=== PATIENT | female | born 1955 | race Caucasian/White ===

== ENCOUNTER 2016-03-29 10:31 | Emergency (ER) | payer MEDICAID ==
[2016-03-29 10:43] VITALS: BP 132/64
--- OUTSIDE RECORDS SUMMARY | 2016-03-29 10:58 | XMS REPORT | Continuity of Care Document ---
:1955 Author Organization [facility] ([facility]) Address [address] [place] [address] Phone [phone] Care Team Providers Name Role Phone Erinnannette Carlita Primary Care Provider [phone] Source Comments This disclosure is being made pursuant to the Care Everywhere program, applicable federal and state laws, and may not contain all informaitonavailable regarding this patient.[facility] ([facility]) Active Allergies and Adverse Reactions Allergen Noted Date Severity Reactions Comments Aspirin 09/05/2014 Unknown Erythromycin Upper Airway Edema,Urticaria (Hives) Hydroxyzine Pamoate 09/05/2014 Nausea & Vomiting Ketorolac 09/05/2014 Nausea & Vomiting Levofloxacin 09/04/2014 Urticaria (Hives) Sulfa (Sulfonamide 09/25/2009 Urticaria (Hives) Antibiotics) Topiramate OTHER seizures Current Medications Prescription Sig. Disp. Refills Start Date End Date Status AMLODIPINE Take 10 mg by mouth Active BESYLATE/BENAZEPRIL daily (LOTREL PO) atorvastatin 80 mg Take 80 mg by mouth Active tablet every evening albuterol 90 Use 2 Puffs by Active mcg/Actuation inhaler inhalation every 6 hours as needed budesonide-formoterol Use 2 Puffs by Active (SYMBICORT) 160-4.5 inhalation 2 times mcg/Actuation inhaler daily cyclobenzaprine 10 mg Take 10 mg by mouth 3 Active tablet times daily as needed famotidine 20 mg tablet Take 20 mg by mouth 2 Active times daily insulin glargine Inject subcutaneously Active (LanTUS SOLOSTAR) 100 at bedtime unit/mL (3 mL) injection pen insulin lispro Inject subcutaneously Active (HumaLOG) 100 unit/mL 3 times daily before injection vial meals levothyroxine 50 mcg Take 50 mcg by mouth Active tablet every morning before breakfast omeprazole 20 mg Take 20 mg by mouth Active enteric coated capsule daily Prasterone (DHEA) 50 mg Active cap OTHER Active multivitamin tablet Take 1 tablet by Active mouth daily. cholecalciferol Take 1,000 Units by Active (VITAMIN D3) 1,000 unit mouth daily. tablet albuterol 2.5 mg/3 mL 05/11/2015 Active inhalation solution benazepril 40 mg tablet 07/12/2015 Active methadone 5 mg tablet 0 06/19/2015 Active oxyCODONE 5 mg 06/26/2015 Active immediate release tablet EASY TOUCH 31 X 516 " Use as directed. 11 06/04/2015 Active ndle BD INSULIN SYRINGE Use as directed. 0 06/04/2015 Active ULTRA-FINE 0.5 mL 31 g x 06/24" ketorolac 0.4 % Instill 1 Drop onto 10 mL 6 07/16/2015 Active ophthalmic solution the left eye 4 times daily. 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 Pseudophakia 05/21/2015 AMD (age related macular degeneration) 04/18/2015 Other dyspnea and respiratory abnormality 09/05/2014 Tobacco use disorder 09/05/2014 Spinal stenosis, unspecified region other than cervical 06/23/2003 Acquired spondylolisthesis 06/23/2003 Borderline personality disorder 02/12/2001 Subjective tinnitus 02/12/2001 Dizziness and giddiness 02/12/2001 Headache(784.0) 02/12/2001 COPD (chronic obstructive pulmonary disease) Social History Tobacco Use Types Packs/Day Years Used Date Current Every Day Smoker 2 30 Smokeless Tobacco: Never Used Tobacco Cessation:Ready to Quit: No; Counseling Given: Yes Comments: Alcohol Use Drinks/Week oz/Week Comments No Last Filed Vital Signs Vital Sign Reading Time Taken Blood Pressure 176/84 07/16/2015 1:00 PM CDT Pulse 73 07/16/2015 1:00 PM CDT Temperature 36.4 C (97.5 F) 07/16/2015 12:42 PM CDT Respiratory Rate 16 07/16/2015 1:00 PM CDT Height 1.626 m (5' 4.02") 04/18/2015 3:13 PM [employer] Weight 80.6 kg (177 lb 11.1 oz) 07/16/2015 11:07 AM CDT Body Mass Index 30.49 07/16/2015 11:07 AM CDT Oxygen Saturation 94% 07/16/2015 1:00 PM CDT Plan of Care Date Type Specialty Providers Description 08/21/2016 Appointment Ophthalmology - Lucille Alvarado MD Chief Comp: Patient Specialty [address] [place] [address] Visit [phone] (Fax) Health Maintenance Due Date Last Done Comments Hepatitis B Vaccine (1 of 3 - Primary 1955 Series) Tdap Vaccine 1965 Lipid Disorder Screening 1972 Td Vaccine 1972 Pneumococcal Vaccine (1 of 1 - PPSV23) 1973 Mammogram 1994 Colonoscopy 06/28/2004 Cervical Cancer Screening 11/16/2004 11/16/2001, 03/01/1999 Zoster Vaccine 2014 Influenza Vaccine: Seasonal (#1) 09/10/2015 HCV Screening Completed 03/15/1998 Results from Last 3 Months Not on file
[2016-03-29] MEDS ORDERED: KETOROLAC TROMETHAMINE 30 MG/ML VIAL IV ONE (11:09)
[2016-03-29] MEDS ORDERED: NORMAL SALINE 1,000 ML IV ONE (11:09)
[2016-03-29] MEDS ORDERED: ONDANSETRON HCL/PF 2 MG/ML VIAL IV ONE (11:09)
[2016-03-29 11:25] LABS: Hematocrit 45.8 % (37.0-47.0); Hemoglobin 15.1 gm/dL (12.5-16.0); Mean Cell Volume 88.6 fl (78-100); Mean Corpuscular Hemoglobin 29.2 pg (27-31); Mean Platelet Volume 8.6 fl (6.0-9.5); Neutrophil # 7.5 K/mm3 (1.3-6.0); Neutrophil % 65.7 % (42-75.0); Platelet Count 351 K/mm3 (150-450); Red Blood Count 5.17 M/mm3 (4.2-5.4); Red Cell Distribution Width 12.8 % (11.5-14.0); White Blood Count 11.4 K/mm3 (4.0-10.5)
[2016-03-29] MEDS ORDERED: KETOROLAC TROMETHAMINE 30 MG/ML VIAL ONE (11:28)
[2016-03-29] MEDS ORDERED: ONDANSETRON HCL/PF 2 MG/ML VIAL ONE (11:28)
[2016-03-29 11:29] LABS: Urine Appearance Slightly Cloudy; Urine Bilirubin Negative (NEGATIVE); Urine Color Yellow; Urine Ketone 15 mg/dL (NEGATIVE)
[2016-03-29 11:30] LABS: Urine Blood Negative /ul (NEGATIVE); Urine Nitrite Negative (NEGATIVE); Urine Protein 30 mg/dL (NEGATIVE); Urine Urobilinogen Normal (NORMAL); Urine WBC 0-5 /hpf (0-5); Urine pH 5.5 pH (5.0-7.0)
[2016-03-29 11:31] LABS: Urine Bacteria 1+; Urine RBC None Seen /hpf (0-5)
[2016-03-29 11:32] LABS: Anion Gap 12.4 mmol/L (6.8-13.8); Calcium * 9.7 mg/dL (7.9-10.9); Carbon Dioxide 29.1 mmol/L (24-32.6); Estimated Creat Clear 65.4; Potassium 4.5 mmol/L (3.4-4.6)
--- NOTE | 2016-03-29 11:55 | ERNOTE ---
Back Pain ER HPI Date of Service: 03/29/16 Presenting Symptoms: other - pain left flank area radiating into left groin area x 3 weeks Time Seen by Provider: 03/29/16 10:48 Source: patient Exam Limitations: no limitations Immunizations: IMMUNIZATION HX Immunizations Up to Date Yes History of Influenza Vaccine No Hx Pneumococcal Vaccination No Allergies/Adverse Reactions: Allergies erythromycin base [Erythromycin Base] Allergy (Severe, Verified 03/29/16 10:44) SWELLING/HIVES sulfadiazine Allergy (Mild, Verified 03/29/16 10:44) Hives levofloxacin [From Levaquin] Allergy (Unknown, Verified 03/29/16 10:44) progesterone Allergy (Unknown, Verified 03/29/16 10:44) butorphanol tartrate [From Stadol] Adverse Reaction (Mild, Verified 03/29/16 10: 44) Nausea hydroxyzine HCl [From Vistaril IM] Adverse Reaction (Mild, Verified 03/29/16 10: 44) rash ibuprofen Adverse Reaction (Mild, Verified 03/29/16 10:44) pain, cramping ketorolac tromethamine [From Toradol] Adverse Reaction (Mild, Verified 03/29/16 10:44) Vomiting topiramate [From Topamax] Adverse Reaction (Mild, Verified 03/29/16 10:44) Itching Sulfa Adverse Reaction (Severe, Uncoded 03/29/16 10:44) Shortness of Breath Home Medications: HOME MEDICATIONS oxyCODONE HCL [Oxycodone] 10 - 20 mg PO TID PRN 05/06/12 [Last Taken 08/02/13] Methadone HCl [Methadone] 5 mg PO BID 06/12/12 [Last Taken 08/02/13] Insulin Glargine,Hum.rec.anlog [Lantus] 30 units SC HS 08/19/14 [Last Taken Unknown] Albuterol Sulfate [Proventil Hfa] 2 puff IH Q4H PRN 09/05/15 [Last Taken Unknown ] Cyanocobalamin [Vitamin B-12] 1,000 mcg PO DAILY 09/05/15 [Last Taken Unknown] Insulin Lispro [Humalog] 5 units SC ACHS 09/05/15 [Last Taken Unknown] Albuterol Sulfate 5 mg IH Q4H PRN 10/17/15 [Last Taken Unknown] Blood Sugar Diagnostic, Drum [Accu-Chek Compact] 1 each ACHS 10/17/15 [Last Taken Unknown] Cholecalciferol (Vitamin D3) [Vitamin D3] 50,000 unit PO Q7D 10/17/15 [Last Taken Unknown] Folic Acid 0.8 mg PO DAILY 10/17/15 [Last Taken Unknown] Insulin Aspart [Novolog Flexpen] 0 unit SQ AC 10/17/15 [Last Taken Unknown] Lactobacillus Acidophilus/Pect [Acidophilus-Pectin Capsule] 1 each PO DAILY 08/24 [Last Taken Unknown] Levothyroxine Sodium [Synthroid] 50 mcg PO DAILY 10/17/15 [Last Taken Unknown] Multivit-Min/FA/Lycopene/Lut [Sentry Senior Multivitamin Tab] 1 each PO DAILY [Last Taken Unknown] Omeprazole [Prilosec] 20 mg PO DAILY 10/17/15 [Last Taken Unknown] Promethazine HCl [Phenergan] 25 - 50 mg PO QID PRN 10/17/15 [Last Taken Unknown] Promethazine HCl [Phenergan] 50 mg RC PRN PRN 10/17/15 [Last Taken Unknown] clonazePAM [Klonopin] 0.5 mg PO TID PRN 10/17/15 [Last Taken Unknown] Cyclobenzaprine HCl [Flexeril] 10/18/15 [Last Taken Unknown] - Pain Score Pain Score #1 Pain Score: 9 Narrative: 60 year old female who presents to ED with c/o "I have been sick x 3 weeks". Patient states started with back pain (left flank area) accompanied with burning with urination, N/V. States 1 week ago saw MARTHA Zazueta and was diagnosed with bladder infection and given unknown antibiotic. Patient states pain in left flank area has progressively getting worse, continues to have N/V and also has fever, chills and body aches. Patient states it no longer lara when she urinates but now has urinary frequency. Timing: Reports: constant, getting worse Quality/Severity: Reports: severe, aching, sharpness, stabbing Location of pain: Reports: other - left mid flank area radiating around into left groin Activities at Onset: Reports: none Recent Injury?: Reports: no Possible Precipitating Factor: Reports: none. Denies: lifting, fall/near fall, trauma Modifying Factors - (Improves): Reports: nothing Modifying Factors - (Worsens): Reports: supine position, movement to right, movement to left, cough/deep breaths Associated Symptoms: Reports: fever/chills, sweating - intermittent, nausea/ vomiting, problems urinating. Denies: constipation/incontinence, difficulty walking, lightheadedness, numbess/weakness in legs Prior Treament: Reports: recently seen, other - just finished antibiotics, unknown name Review of Systems - Review of Systems Constitutional: Present: fever, chills, diaphoresis. Absent: weakness, fatigue , weight loss EYE: Present: no symptoms reported ENT: Absent: ear pain, ear discharge, nose pain, nose congestion, nasal drainage , sore throat Respiratory: Absent: shortness of breath, cough, orthopnea, wheezing, stridor Cardiology: Present: no symptoms reported. Absent: chest pain, palpitations, syncope Gastrointestinal/Abdominal: Present: nausea, vomiting, eating less, drinking less. Absent: diarrhea, constipation, abdominal pain Genitourinary: Present: frequency, dysuria - recent history of dysuria. Absent : hematuria, discharge Musculoskeletal: Present: back pain. Absent: muscle pain, muscle stiffness, neck pain Skin: Absent: rash, dryness Neurological: Present: no symptoms reported Endocrine: Present: no symptoms reported Hematologic/Lymphatic: Present: no symptoms reported Psych: Present: no symptoms reported - Patient's Past Medical History Patient History - Medical: No pertinent hx, Chronic Pain, Diabetes Type 2, Headache, Migraines Patient History - Cardiac/Respiratory: No pertinent hx Patient History - Cancer: No Hx of Cancer Patient History - Surgical Procedures: Cataracts, Cholecystectomy, Tubal Ligation, Other Patient History - Other: None - Social History Living Situations: home Abuse History: No History of abuse Psych History: Hx of Depression, Current tx/ever been on anti-depressants or anti-anxiety meds Smoking Status: Current every day smoker Have you smoked in the past 12 months: Yes Do you dip or chew tobacco: No Alcohol Use: none Drug Use: none - Immunizations Immunizations Up to Date: Yes Hx Pneumococcal Vaccination: No History of Influenza Vaccine: No Physical Exam - Physical Exam General Appearance: Present: wd/wn, alert, no apparent distress. Absent: lethargic Eye Exam: Normal inspection: bilateral, PERRL: bilateral Ears, Nose, Throat: Present: normal ENT inspection, hearing grossly normal, normal pharynx. Absent: nasal congestion, sinus pain/drainage, dry mucous membranes Neck: Present: normal inspection, nontender Respiratory: Present: no respiratory distress, normal breath sounds, no accessory muscle use, chest nontender, lungs clear. Absent: chest tenderness, respiratory distress Cardiovascular/Chest: Present: regular rate, rhythm, no murmur, normal peripheral pulses. Absent: tachycardia, bradycardia, irregularly irregular, extra beats Peripheral Pulses: N=norm/S=strong/W=weak/B=bound/A=absent: Radial (R): Normal, Radial (L): Normal Gastrointestinal/Abdominal: Present: normal bowel sounds, nontender, nondistended, soft, tenderness - all quadrants, guarding - all quadrants. Absent: abnormal bowel sounds, distended Rectal Exam: Present: deferred Back Exam: Present: normal inspection, normal range of motion, CVA tenderness (L ). Absent: CVA tenderness (R), vertebral tenderness, decreased range of motion Extremity Exam: Present: normal inspection, non-tender, no edema, normal range of motion. Absent: decreased range of motion, pedal edema, calf tenderness Neurological Exam: Present: alert, oriented, normal mood/affect, no motor/ sensory deficits. Absent: motor weakness Skin Exam: Present: normal color, warm/dry. Absent: diaphoresis, cyanosis, jaundice Lymphatic Exam: Present: no adenopathy Pelvic Exam: Present: deferred ED Progress - Results and Orders Patient's Lab Results:: I have reviewed the patient's lab results. - Vital Signs Patient's Vital Signs:: I have reviewed the patient's vital signs. Vital Signs: Vital Signs 03/29/16 10:40 Temperature 36.2 C L Pulse Rate 87 Respiratory 14 Rate Blood Pressure 132/64 O2 Sat by Pulse 96 Oximetry - CT/Ultrasound CT/Ultrasound Narrative: CT abdomen and pelvis for stone protocol shows no definable renal calculi within the kidneys or along ureters. Marked stenosis L4 and L5 - Progress/Reassessment Chief Complaint: Back Pain Progress:: Unchanged Progress Note-Subjective: 03/29/16 12:57 resting quietly in room. States pain is unchanged. Offered Toradol but patient refused Departure Clinical Impression: Chronic back pain Qualifiers: Back pain location: low back pain Back pain laterality: left Sciatica presence : without sciatica Qualified Code(s): M54.5 - Low back pain; G89.29 - Other chronic pain - Departure Disposition: Home self-care Condition: Good Instructions: Chronic Pain, Chronic Back Pain Additional Instructions: Follow up with primary care physician. Return if loss of bowel or bladder occurs
== END 2016-03-29 13:20 | disposition home or self-care (01) ==
LOC: ER 10:31
DX: M54.5 Low back pain (principal); G89.29 Other chronic pain; F17.210 Nicotine dependence, cigarettes, uncomplicated

== ENCOUNTER 2016-10-31 12:47 | Emergency (ER) | payer MEDICAID ==
--- NOTE | 2016-10-31 14:02 | ERNOTE ---
Abdominal HPI - Narrative Date of Service: 10/31/16 - General Chief Complaint: Abdominal Pain Time Seen by Provider: 10/31/16 13:53 Source: patient Exam Limitations: no limitations - Immun/Allergies/Home Medications Immunizatons: IMMUNIZATION HX Immunizations Up to Date Yes History of Influenza Vaccine No Hx Pneumococcal Vaccination Yes Allergies/Adverse Reactions: Allergies erythromycin base [Erythromycin Base] Allergy (Severe, Verified 03/29/16 10:44) SWELLING/HIVES sulfadiazine Allergy (Mild, Verified 03/29/16 10:44) Hives levofloxacin [From Levaquin] Allergy (Unknown, Verified 03/29/16 10:44) progesterone Allergy (Unknown, Verified 03/29/16 10:44) butorphanol tartrate [From Stadol] Adverse Reaction (Mild, Verified 03/29/16 10: 44) Nausea hydroxyzine HCl [From Vistaril IM] Adverse Reaction (Mild, Verified 03/29/16 10: 44) rash ibuprofen Adverse Reaction (Mild, Verified 03/29/16 10:44) pain, cramping ketorolac tromethamine [From Toradol] Adverse Reaction (Mild, Verified 03/29/16 10:44) Vomiting topiramate [From Topamax] Adverse Reaction (Mild, Verified 03/29/16 10:44) Itching Sulfa Adverse Reaction (Severe, Uncoded 03/29/16 10:44) Shortness of Breath Home Medications: HOME MEDICATIONS Methadone HCl [Methadone] 5 mg PO BID 06/12/12 [Last Taken 08/02/13] Insulin Glargine,Hum.rec.anlog [Lantus] 30 units [facility] 08/19/14 [Last Taken Unknown] Albuterol Sulfate [Proventil Hfa] 2 puff IH Q4H PRN 09/05/15 [Last Taken Unknown ] Cyanocobalamin [Vitamin B-12] 1,000 mcg PO DAILY 09/05/15 [Last Taken Unknown] Insulin Lispro [Humalog] See Protocol [facility] 09/05/15 [Last Taken Unknown] Blood Sugar Diagnostic, Drum [Accu-Chek Compact] 1 each [facility] 10/17/15 [Last Taken Unknown] Cholecalciferol (Vitamin D3) [Vitamin D3] 50,000 unit PO Q7D 10/17/15 [Last Taken Unknown] Multivit-Min/FA/Lycopen/Lutein [Sent Senior Multivitamin Tab] 1 each PO DAILY 10/17/15 [Last Taken Unknown] Promethazine HCl [Phenergan] 25 - 50 mg PO QID PRN 10/17/15 [Last Taken Unknown] clonazePAM [Klonopin] 0.5 mg PO TID PRN 10/17/15 [Last Taken Unknown] Cyclobenzaprine HCl [Flexeril] 10 mg PO TID 10/18/15 [Last Taken Unknown] Albuterol Sulfate [Proventil Hfa] 6.7 gm IH PRN PRN 10/31/16 [Last Taken Unknown ] Amlodipine Besylate/Benazepril [Lotrel 10-20 mg Capsule] 1 each PO DAILY [Last Taken Unknown] Atorvastatin Calcium [Lipitor] 80 mg PO DAILY 10/31/16 [Last Taken Unknown] Benazepril HCl 40 mg PO DAILY 10/31/16 [Last Taken Unknown] Budesonide/Formoterol Fumarate [Symbicort 160-4.5 Mcg Inhaler] 2 puff IH BID [Last Taken Unknown] Famotidine 20 mg PO DAILY 10/31/16 [Last Taken Unknown] Gabapentin 300 mg PO TID 10/31/16 [Last Taken Unknown] Prasterone (Dhea) [Dhea 25] 25 mg PO DAILY 10/31/16 [Last Taken Unknown] oxyCODONE HCL [Oxycodone] 5 mg PO Q6H PRN 10/31/16 [Last Taken Unknown] - Pain Score Pain Score #1 Pain Score: 9 Abdominal Pain Onset Location: RUQ, RLQ - History of Present Illness Narrative: 61yo, F, presents to ER with R. sided abd pain x5 days. Pain progressively worse over the last few days. Notes pain is constant with bouts of increased pain. Denies any n, v, d. She is a DM II, notes her PCP has been gradually increasing her Lantus level. This am bg was 142, but has had episodes 200s over the last few days. Timing: constant - with intermittent increased pain Quality: stabbing Modifying Factors - (Improves): Present: other - nothing Modifying Factors - (Worsens): Present: other - nothing Associated Symptoms: Present: other - "gassy". Absent: diarrhea-gross blood, diarrhea-mucous, fever/chills, nausea, vomiting, loss of appetite, shortness of breath, swelling/mass in abdomen Review of Systems - Review of Systems Constitutional: Absent: fever, chills, diaphoresis Respiratory: Absent: shortness of breath, cough, wheezing Cardiology: Absent: chest pain, palpitations Gastrointestinal/Abdominal: Present: other - last BM this am "soft", no diarrhea or constipation. Absent: nausea, vomiting, diarrhea, constipation Genitourinary: Absent: frequency, pain, dysuria, hematuria, decreased urinary output Skin: Absent: rash - Patient's Past Medical History Patient History - Medical: No pertinent hx, Chronic Pain, Diabetes Type 2, Headache, Migraines Patient History - Cardiac/Respiratory: No pertinent hx Patient History - Cancer: No Hx of Cancer Patient History - Surgical Procedures: Cataracts, Cholecystectomy, Tubal Ligation, Other Patient History - Other: None - Social History Living Situations: home Abuse History: No History of abuse Psych History: Hx of Anxiety, Hx of Depression, Current tx/ever been on anti- depressants or anti-anxiety meds Smoking Status: Current every day smoker Have you smoked in the past 12 months: Yes Do you dip or chew tobacco: No Alcohol Use: none Drug Use: none - Immunizations Immunizations Up to Date: Yes Hx Pneumococcal Vaccination: Yes History of Influenza Vaccine: No Physical Exam - Physical Exam General Appearance: Present: wd/wn, alert, other - appears uncomfortable Head Exam: Present: normal inspection Respiratory: Present: no respiratory distress, no accessory muscle use, wheezing - mild intemittent . Absent: rales, rhonchi Cardiovascular/Chest: Present: regular rate, rhythm, no murmur Gastrointestinal/Abdominal: Present: normal bowel sounds, nondistended, soft, tenderness - RLQ, RUQ. Absent: mass, hernia Neurological Exam: Present: alert, oriented Skin Exam: Present: normal color, warm/dry ED Progress - Date and Time Seen: Date and Time: 10/31/16 14:10 When advised that work up with labs and xray were being performed. Pt requests to leave the property to smoke. Advised that was against hospital policy and if she left the property she would need to sign AMA form and when she returned check back in at ER as new pt. Pt then mentioned slipping out. Advised that policy would be the same if she left the ER/hospital. 10/31/16 15:50 Xray notes mild bowel loop dilation, cannot exclude bowel obstruction. Reviewed results with pt and need to perform CT scan. Pt requests additional medication for pain. Notes hx of vomiting with contrast in past. Will admin Promethazine. 10/31/16 19:[address] results with Dr. Lau, no obstruction, but does show slow transit of contrast. As pt is passing stools and having no vomiting, will discharge home. Pt pain is improved and was resting upon entering room. Reviewed CT results and instructions and red flag symptoms. Advised nsg staff would be in with dc instructions. Pt then walked out of room after provider stepped out, states she is ready to leave now, is tired of waiting and cold. - Results and Orders Patient's Lab Results:: I have reviewed the patient's lab results. - Vital Signs Patient's Vital Signs:: I have reviewed the patient's vital signs. Vital Signs: Vital Signs 10/31/16 12:52 Temperature 37.1 C Pulse Rate 79 Respiratory 18 Rate Blood Pressure 123/97 O2 Sat by Pulse 96 Oximetry - X-Ray X-Ray #1 X-Ray: abdomen Interpretation: Reviewed by me X-ray Comments: [facility] PATIENT RADIOLOGY STUDY REPORT Patient Patient Name:KRIS IQBAL Date: 1955 Sex: F Order Number: [id number] Unique Exam ID: [id number] Exam Requested: ABDCOMWDEC - Abdomen Flat W/ Upright * Date Scheduled: 10-31-2016 02:08 PM Study Priority: Requesting Service: Requesting Physician: Samantha Sandoval Reason for Exam: R. upper and lower abd pain Radiological Report : [facility] [address] - [place] [address] NAME: KRIS IQBAL : 1955 MR #: [id number] CC: Carlita Lujan CNP LOC: ER ADM DATE: X-RAY REPORT [id number] RAD/Abdomen Flat W/ Upright * Exam Date: 10/31/2016 14:08 Ordering Physician: Samantha Sandoval History: R. upper and lower abd pain . Additional history provided by the technologist: Second recurrence of abdominal pain. History of cholecystectomy. Technique: Abdominal series (4 views) Comparison: Prior exams, most recent is CT dated March 29, 2016. Findings: Lung bases are clear. Moderate stool retention. There are air-filled distended, borderline dilated loops of small bowel in the right abdomen with scattered air- fluid levels. No pneumoperitoneum. No signs of mass or mass effect. No obvious urolithiasis. Surgical clips are superimposed over the right upper quadrant. Aortoiliac atherosclerotic calcifications noted. Degenerative changes. Decreased osseous mineralization. Impression: Abnormal bowel gas pattern. There is stool retention with abnormal loops of small bowel in the right abdomen. Correlate for signs of a partial small bowel obstruction. Electronically signed by Ten Grover D.O.. Ten Grover DO Dict: 10/31/16 1517 Typed: 10/31/16 1517/ 10/31/16 1522 10/31/16 1525 , Approved by: Ten Grover Approval Date: 10-31-2016 Approval Time: 03:17 PM THIS REPORT WAS RECEIVED FROM THE [employer] SYSTEM - CT/Ultrasound CT/Ultrasound Narrative: [facility] PATIENT RADIOLOGY STUDY REPORT Patient Patient Name:KRIS IQBAL Date: 1955 Sex: F Order Number: [id number] Unique Exam ID: [id number] Exam Requested: ABDPELW - CT Abdomen/Pelvis W/C * Date Scheduled: 10-31-2016 03:53 PM Study Priority: Requesting Service: Requesting Physician: Samantha Sandoval Reason for Exam: abd pain, abnormal xray Radiological Report : [facility] [address] [address] NAME: KRIS IQBAL : 1955 MR #: [id number] CC: Carlita Lujan CNP LOC: ER ADM DATE: X-RAY REPORT CT/CT Abdomen/Pelvis W/C * Exam Date: 10/31/2016 15:53 Ordering Physician: Samantha Sandoval HISTORY/INDICATION: abd pain, abnormal xray Additional history from technologist: Lower abdominal cramping on and off for 1- 2 months. TECHNIQUE: Contrast enhanced CT images of the abdomen during portal venous phase obtained. Excretory phase images of the abdomen and pelvis were also obtained. Coronal reconstructions were also submitted. Oral contrast material was given. Dose reduction techniques using the adjustment of the mA and/or kV according to patient size and/ or use of AEC or iterative reconstruction were used in the acquisition of this exam. COMPARISON: Previous noncontrast CT of 03/29/2016, recent abdominal radiographs from 2016, CT from 2013 CT Abdomen/Pelvis W/C * ABDOMEN: Lungs: Mild dependent atelectasis present. Visualized portions of the heart grossly normal. Liver: No focal mass or intrahepatic ductal dilation apparent. Gallbladder: Gallbladder appears to be surgically absent. Pancreas: The pancreas appears to be normal in appearance. Spleen: Multiple splenic calcified granulomas are present. Adrenal glands: There is a 12 mm nodular lesion of the posterior limb of the left adrenal gland, grossly stable in size. Previous noncontrast imaging demonstrates region of interest average density measurement of 9.1 Hounsfield units, consistent with an adrenal adenoma. Kidneys: Normal appearance without focal mass or hydronephrosis. There is a small subcentimeter hypodensity in the upper pole left kidney, stable most likely a small cyst. Aorta: Moderate amount of calcified atherosclerotic plaque noted throughout the aorta. Diameter of the infrarenal segment at the level of the inferior mesenteric artery origin is 2.2 cm. There is mild ectasia without definite signs of aneurysm. Retroperitoneum: No pathologic size lymphadenopathy or mass within the retroperitoneum is seen. Stomach: Partially opacified stomach grossly unremarkable. Small bowel: Contrast material does not reach the terminal ileum/colon which is suggestive of slow transit. There is no clear cut focal transition point or definite abnormal dilation. There is no mesenteric stranding/vascular congestion. Colon: There is stool retention throughout the colonic segments. No definite signs of circumferential bowel wall thickening or pericolonic inflammatory changes suggested on these images. Normal caliber appendix seen. Air-filled nondilated appendix best seen on series 4 image 58- 65 medial to the base of the cecum projecting towards the midline of the lower abdomen. Abdominal wall: There is a tiny fat-containing umbilical hernia. There may be a fat-containing right inguinal hernia seen best on series 4 image 80. No evidence for intraperitoneal free air. PELVIS: Urinary bladder appears to be somewhat distended but otherwise unremarkable. No definite signs of pelvic lymphadenopathy or masses are noted. No evidence of free pelvic fluid noted. Bones: Osseous structures are intact without evidence for focal destructive changes. Degenerative changes of the spine noted. Severe spinal stenosis suggested at L4-L5 with disc osteophyte complex and facet joint degenerative changes. IMPRESSION: 1. Slow transit of the enteric contrast, without definite signs of mechanical obstruction/ transition point. Could represent underlying small bowel ileus. 2. Stool retention noted within the colonic segment suggestive of constipation. 3. No CT signs of acute appendicitis. 4. Fat-containing right inguinal hernia. Small fat-containing umbilical hernia. 5. Abdominal aortic atherosclerotic disease, with ectasia measuring 2.2 cm at the infrarenal segment. 6. Additional comments and details are as above. Electronically signed by Mahin Salinas M.D.. Mahin Salinas MD Dict: 10/31/161818 Typed: 10/31/161818/ 10/31/16 1832 10/31/16 1838 , Approved by: MAHIN SALINAS Approval Date: 10-31-2016 Approval Time: 06:19 PM THIS REPORT WAS RECEIVED FROM THE [employer] SYSTEM - Progress/Reassessment Chief Complaint: Abdominal Pain Departure Clinical Impression: Abdominal pain, Constipation - Departure Disposition: Home self-care Condition: Good Instructions: Abdominal Pain, Adult, [id number] Additional Instructions: Liquid diet for the next 24 hours, then may advance to bland diet Resume use of your docusate sodium 100mg twice daily Call and schedule follow up next week with your doctor Return to ER if symptoms worsen, do not improve or if you develop vomiting, increased abdominal pain or not having bowel movements Referrals: Carlita Lujan, GENERAL FARM MANAGER [Primary Care Provider] -
[2016-10-31] MEDS ORDERED: NORMAL SALINE 1,000 ML IV ONE (14:09)
[2016-10-31] MEDS ORDERED: ONDANSETRON HCL/PF 2 MG/ML VIAL IV ONE (14:09)
[2016-10-31] MEDS ORDERED: HYDROmorphone HCL 1 MG/ML DISP.SYRIN IV ONE ×2 (14:09→15:53)
[2016-10-31] MEDS ORDERED: ONDANSETRON HCL/PF 2 MG/ML VIAL ONE (14:10)
[2016-10-31] MEDS ORDERED: HYDROmorphone HCL 1 MG/ML DISP.SYRIN ONE ×2 (14:10→16:09)
[2016-10-31 14:20] LABS: Hematocrit 44.9 % (37.0-47.0); Hemoglobin 14.6 gm/dL (12.5-16.0); Mean Cell Volume 89.6 fl (78-100); Mean Corpuscular Hemoglobin 29.1 pg (27-31); Mean Corpuscular Hgb Conc 32.5 g/dl (32-36); Neutrophil # 6.5 K/mm3 (1.3-6.0); Neutrophil % 59.9 % (42-75.0); Platelet Count 341 K/mm3 (150-450); Red Blood Count 5.01 M/mm3 (4.2-5.4); Red Cell Distribution Width 13.2 % (11.5-14.0); White Blood Count 10.9 K/mm3 (4.0-10.5)
[2016-10-31 14:34] LABS: Albumin * 3.9 gm/dl (3.4-5.0); Anion Gap 11.6 mmol/L (6.8-13.8); BUN/Creatinine Ratio 12.1 (9.0-21.6); Bilirubin, Total 0.4 mg/dL (0.0-1.1); CRP 0.8 mg/dL (0.0-0.9); Ca. Corrected For Albumin 8.8 mg/dL (8.4-10.2); Carbon Dioxide 32.1 mmol/L (24-32.6); Potassium 3.7 mmol/L (3.4-4.6); Total Protein 7.6 gm/dL (6.2-8.2)
[2016-10-31 15:17] LABS: Urine Bilirubin Negative (NEGATIVE); Urine Blood Negative /ul (NEGATIVE); Urine Ketone Negative (NEGATIVE); Urine Nitrite Negative (NEGATIVE); Urine Protein Negative (NEGATIVE); Urine Specific Gravity <=1.005 SP.GR. (1.005-1.010); Urine Urobilinogen Normal (NORMAL)
[2016-10-31 15:35] LABS: Urine Appearance Clear; Urine Bacteria TRACE; Urine Color Pale Yellow; Urine RBC None Seen /hpf (0-5); Urine WBC None Seen /hpf (0-5)
[2016-10-31] MEDS ORDERED: PROMETHAZINE HCL 25 MG in DEXTROSE 5 % IN WATER 50 ML IV ONE ×2 (15:53)
[2016-10-31] MEDS ORDERED: DIATRIZOATE MEGLUMINE, SODIUM 30 ML BTL ONE (16:08)
[2016-10-31 18:57] VITALS: BP 168/79
== END 2016-10-31 19:30 | disposition home or self-care (01) ==
LOC: ER 12:47
DX: K59.00 Constipation, unspecified (principal); R10.31 Right lower quadrant pain; R10.11 Right upper quadrant pain; F17.200 Nicotine dependence, unspecified, uncomplicated; E11.9 Type 2 diabetes mellitus without complications; Z79.4 Long term (current) use of insulin; F41.9 Anxiety disorder, unspecified; G89.29 Other chronic pain
CPT/HCPCS: 36415; 74020; 74177; 80053; 81001; 82150; 83690; 85025; 85652; 86140; 96365; 96375; 99284; J2405

== ENCOUNTER 2016-11-03 05:41 | Emergency (ER) | payer MEDICAID ==
--- NOTE | 2016-11-03 06:17 | ERNOTE ---
Abdominal HPI - General Chief Complaint: Abdominal Pain Time Seen by Provider: 11/03/16 06:07 Source: patient, RN notes reviewed, past records Exam Limitations: no limitations - Immun/Allergies/Home Medications Immunizatons: IMMUNIZATION HX Immunizations Up to Date Yes History of Influenza Vaccine Yes Hx Pneumococcal Vaccination Yes Allergies/Adverse Reactions: Allergies erythromycin base [Erythromycin Base] Allergy (Severe, Verified 03/29/16 10:44) SWELLING/HIVES sulfadiazine Allergy (Mild, Verified 03/29/16 10:44) Hives levofloxacin [From Levaquin] Allergy (Unknown, Verified 03/29/16 10:44) progesterone Allergy (Unknown, Verified 03/29/16 10:44) butorphanol tartrate [From Stadol] Adverse Reaction (Mild, Verified 03/29/16 10: 44) Nausea hydroxyzine HCl [From Vistaril IM] Adverse Reaction (Mild, Verified 03/29/16 10: 44) rash ibuprofen Adverse Reaction (Mild, Verified 03/29/16 10:44) pain, cramping ketorolac tromethamine [From Toradol] Adverse Reaction (Mild, Verified 03/29/16 10:44) Vomiting topiramate [From Topamax] Adverse Reaction (Mild, Verified 03/29/16 10:44) Itching Sulfa Adverse Reaction (Severe, Uncoded 03/29/16 10:44) Shortness of Breath Home Medications: HOME MEDICATIONS Insulin Glargine,Hum.rec.anlog [Lantus] 40 units [facility] 08/19/14 [Last Taken Unknown] Albuterol Sulfate [Proventil Hfa] 2 puff IH Q4H PRN 09/05/15 [Last Taken Unknown ] Cyanocobalamin [Vitamin B-12] 1,000 mcg PO DAILY 09/05/15 [Last Taken Unknown] Insulin Lispro [Humalog] See Protocol [facility] 09/05/15 [Last Taken Unknown] Blood Sugar Diagnostic, Drum [Accu-Chek Compact] 1 each [facility] 10/17/15 [Last Taken Unknown] Cholecalciferol (Vitamin D3) [Vitamin D3] 50,000 unit PO Q7D 10/17/15 [Last Taken Unknown] Promethazine HCl [Phenergan] 25 - 50 mg PO QID PRN 10/17/15 [Last Taken Unknown] clonazePAM [Klonopin] 0.5 mg PO TID PRN 10/17/15 [Last Taken Unknown] Cyclobenzaprine HCl [Flexeril] 10 mg PO TID 10/18/15 [Last Taken Unknown] Albuterol Sulfate [Proventil Hfa] 6.7 gm IH PRN PRN 10/31/16 [Last Taken Unknown ] Amlodipine Besylate/Benazepril [Lotrel 10-20 mg Capsule] 1 each PO DAILY [Last Taken Unknown] Atorvastatin Calcium [Lipitor] 80 mg PO DAILY 10/31/16 [Last Taken Unknown] Budesonide/Formoterol Fumarate [Symbicort 160-4.5 Mcg Inhaler] 2 puff IH BID [Last Taken Unknown] Famotidine 20 mg PO DAILY 10/31/16 [Last Taken Unknown] oxyCODONE HCL [Oxycodone] 5 mg PO Q6H PRN 10/31/16 [Last Taken Unknown] - History of Present Illness Narrative: Patient comes in complaining of continuing abdominal pain. She was here on Thursday, had an extensive work up done, and was sent home. She states that her pain is worse than it was on Thursday. She drank a bottle of Magnesium Citrate, with good relief of her bowels (she was constipated with lots of dry firm stools in her descending colon on Thursday, and air/fluid levels on the right side of her abdomen), but her pain has not abated. Timing: getting worse Quality: severe, cramping Activities at Onset: none Modifying Factors - (Worsens): Present: analgesics - patient's pain meds Associated Symptoms: Present: nausea Prior Abdominal Problems: Present: similar symptoms Prior Treatment: Present: recently seen, treated by physician Review of Systems - Review of Systems Constitutional: Absent: recent illness, fever, chills, diaphoresis EYE: Absent: eye pain, eye discharge ENT: Absent: ear pain, sore throat Respiratory: Absent: shortness of breath, cough Cardiology: Absent: chest pain, palpitations Gastrointestinal/Abdominal: Present: constipation, abdominal pain, other - passing minimal gas. Absent: nausea, vomiting, diarrhea Genitourinary: Absent: frequency, pain, dysuria Musculoskeletal: Absent: back pain, muscle pain, muscle stiffness, neck pain, joint pain Skin: Present: no symptoms reported Neurological: Present: no symptoms reported - Patient's Past Medical History Patient History - Medical: No pertinent hx, Chronic Pain, Diabetes Type 2, Headache, Migraines Patient History - Cardiac/Respiratory: No pertinent hx Patient History - Cancer: No Hx of Cancer Patient History - Surgical Procedures: Cataracts, Cholecystectomy, Tubal Ligation, Other Patient History - Other: None - Social History Living Situations: home Abuse History: No History of abuse Psych History: Hx of Anxiety, Hx of Depression, Current tx/ever been on anti- depressants or anti-anxiety meds Smoking Status: Current every day smoker Patient requests Smoking Cessation Consult: No Initiate information on Smoking Cessation: No Alcohol Use: none Drug Use: none - Immunizations Immunizations Up to Date: Yes Hx Pneumococcal Vaccination: Yes History of Influenza Vaccine: Yes Physical Exam - Physical Exam General Appearance: Present: wd/wn, alert, moderate distress, obese Head Exam: Present: normal inspection, no evidence of injury Eye Exam: Normal inspection: bilateral, PERRL: bilateral, EOMI: bilateral Ears, Nose, Throat: Present: normal ENT inspection, normal pharynx Neck: Present: normal inspection, nontender Respiratory: Present: no respiratory distress, normal breath sounds, no accessory muscle use Cardiovascular/Chest: Present: regular rate, rhythm, no murmur Gastrointestinal/Abdominal: Present: soft, tenderness - epigastric and right sided, abnormal bowel sounds - tinkling, guarding. Absent: nontender, rebound Extremity Exam: Present: normal inspection, non-tender, normal range of motion Neurological Exam: Present: alert, oriented, normal mood/affect, no motor/ sensory deficits Skin Exam: Present: normal color, warm/dry ED Progress - Results and Orders Patient's Lab Results:: I have reviewed the patient's lab results. - Vital Signs Patient's Vital Signs:: I have reviewed the patient's vital signs. Vital Signs: Vital Signs 11/03/16 05:50 Temperature 37.2 C Pulse Rate 87 Respiratory 18 Rate Blood Pressure 154/95 O2 Sat by Pulse 95 Oximetry - Progress/Reassessment Chief Complaint: Abdominal Pain Progress:: Unchanged Progress Note-Subjective: 11/03/16 07:37 Patient was given a GI Cocktail to drink, that upset her, she states that made her feel worse. She wants to leave and go home, take her pain medications and her Phenergan. I explained to her that there is an organized process to try and figure out why a person would have abdominal pain, but she is adamant she would rather go home. I agreed that she was free to leave, but that I would ask her to sign out AMA since she doesn't want to finish the process of figuring out her abdominal pain. Departure Clinical Impression: Abdominal pain Qualifiers: Abdominal location: epigastric Qualified Code(s): R10.13 - Epigastric pain - Departure Disposition: Against medical advice Condition: Stable Referrals: Carlita Lujan, EVENT SPECIALIST PRODUCT DEMONSTRATOR [Primary Care Provider] -
[2016-11-03] MEDS ORDERED: SUCRALFATE 1 G/10 ML UDC PO ONE (06:58)
[2016-11-03] MEDS ORDERED: LIDOCAINE HCL 20 ML UDC PO ONE (06:58)
[2016-11-03] MEDS ORDERED: MAG HYDROX/ALUMINUM HYD/SIMETH 30 ML UDC PO ONE (06:58)
[2016-11-03 07:06] VITALS: BP 165/67
[2016-11-03 07:22] LABS: Hematocrit 41.6 % (37.0-47.0); Hemoglobin 13.5 gm/dL (12.5-16.0); Mean Cell Volume 90.2 fl (78-100); Mean Corpuscular Hemoglobin 29.3 pg (27-31); Mean Corpuscular Hgb Conc 32.5 g/dl (32-36); Neutrophil % 55.9 % (42-75.0); Platelet Count 306 K/mm3 (150-450); Red Blood Count 4.61 M/mm3 (4.2-5.4); Red Cell Distribution Width 13.4 % (11.5-14.0); White Blood Count 8.9 K/mm3 (4.0-10.5)
[2016-11-03] MEDS ORDERED: PROMETHAZINE HCL 25 MG/ML AMPUL IM ONE (07:29)
[2016-11-03 07:36] LABS: Albumin * 3.7 gm/dl (3.4-5.0); Anion Gap 12.1 mmol/L (6.8-13.8); BUN/Creatinine Ratio 11.8 (9.0-21.6); Bilirubin, Total 0.5 mg/dL (0.0-1.1); Calcium * 9.1 mg/dL (7.9-10.9); Carbon Dioxide 30.7 mmol/L (24-32.6); Potassium 3.8 mmol/L (3.4-4.6); Total Protein 7.4 gm/dL (6.2-8.2)
[2016-11-03] MEDS ORDERED: PROMETHAZINE HCL 25 MG/ML AMPUL ONE (07:36)
== END 2016-11-03 07:40 | disposition left against medical advice (07) ==
LOC: ER 05:41
DX: R10.13 Epigastric pain (principal); G89.29 Other chronic pain; E11.9 Type 2 diabetes mellitus without complications; F17.200 Nicotine dependence, unspecified, uncomplicated; Z53.29 Procedure and treatment not carried out because of patient's decision for other reasons

== ENCOUNTER 2016-12-18 18:36 | Emergency (ER) | payer MEDICAID ==
--- NOTE | 2016-12-18 19:12 | ERNOTE ---
<Suman Ureña - Last Filed: 12/18/16 19:48> Lower Extremity HPI - General Lower Extremities Pain: leg: right, knee: right Time Seen by Provider: 12/18/16 19:02 Source: patient Exam Limitations: no limitations - Immun/Allergies/Home Medications Immunizations: IMMUNIZATION HX Immunizations Up to Date Yes History of Influenza Vaccine No Hx Pneumococcal Vaccination No Allergies/Adverse Reactions: Allergies Allergy/AdvReac Type Severity Reaction Status Date / Time erythromycin base Allergy Severe SWELLING/HI Verified 12/18/16 18:48 [Erythromycin Base] VES sulfadiazine Allergy Mild Hives Verified 12/18/16 18:48 levofloxacin [From Levaquin] Allergy Unknown Verified 12/18/16 18:48 progesterone Allergy Unknown Verified 12/18/16 18:48 butorphanol tartrate AdvReac Mild Nausea Verified 12/18/16 18:48 [From Stadol] hydroxyzine HCl AdvReac Mild rash Verified 12/18/16 18:48 [From Vistaril IM] ibuprofen AdvReac Mild pain, Verified 12/18/16 18:48 cramping ketorolac tromethamine AdvReac Mild Vomiting Verified 12/18/16 18:48 [From Toradol] topiramate [From Topamax] AdvReac Mild Itching Verified 12/18/16 18:48 Sulfa AdvReac Severe Shortness Uncoded 12/18/16 18:48 of Breath Home Medications: HOME MEDICATIONS Insulin Glargine,Hum.rec.anlog [Lantus] 40 units SC HS 08/19/14 [Last Taken Unknown] Albuterol Sulfate [Proventil Hfa] 2 puff IH Q4H PRN 09/05/15 [Last Taken Unknown ] Cyanocobalamin [Vitamin B-12] 1,000 mcg PO DAILY 09/05/15 [Last Taken Unknown] Insulin Lispro [Humalog] See Protocol [facility] 09/05/15 [Last Taken Unknown] Blood Sugar Diagnostic, Drum [Accu-Chek Compact] 1 each [facility] 10/17/15 [Last Taken Unknown] Cholecalciferol (Vitamin D3) [Vitamin D3] 50,000 unit PO Q7D 10/17/15 [Last Taken Unknown] Promethazine HCl [Phenergan] 25 mg PO QID PRN 10/17/15 [Last Taken Unknown] clonazePAM [Klonopin] 0.5 mg PO TID PRN 10/17/15 [Last Taken Unknown] Cyclobenzaprine HCl [Flexeril] 10 mg PO TID 10/18/15 [Last Taken Unknown] Amlodipine Besylate/Benazepril [Lotrel 10-20 mg Capsule] 1 each PO DAILY [Last Taken Unknown] Atorvastatin Calcium [Lipitor] 80 mg PO DAILY 10/31/16 [Last Taken Unknown] Budesonide/Formoterol Fumarate [Symbicort 160-4.5 Mcg Inhaler] 2 puff IH BID [Last Taken Unknown] Famotidine 20 mg PO DAILY 10/31/16 [Last Taken Unknown] oxyCODONE HCL [Oxycodone] 5 mg PO Q6H PRN 10/31/16 [Last Taken Unknown] Methadone HCl [Methadone] 5 mg PO DAILY 12/18/16 [Last Taken Unknown] Multivitamin [Multivitamins] 1 each PO DAILY 12/18/16 [Last Taken Unknown] Prasterone (Dhea) [Dhea 25] 25 mg PO DAILY 12/18/16 [Last Taken Unknown] oxyCODONE HCL/ACETAMINOPHEN [Percocet 5-325 mg Tablet] 1 each PO QID 12/18/16 [ Last Taken Unknown] - History of Present Illness Narrative: Patient presents with pain in the right calf and area behind the right knee. Onset was 2 days ago and she feels as though his stool swollen and it hurts to walk. Occurred: other - 2 days ago Location of Incident: home Method of Injury: Reports: no apparent injury Loss of Consciousness: Reports: no loss of consciousness Modifying Factors - (Improves): Reports: other - nothing Modifying Factors - (Worsens): Reports: movement - and weightbearing Associated Symptoms: Reports: none Other Injuries: Reports: none Review of Systems - Review of Systems Constitutional: Present: See HPI EYE: Present: no symptoms reported ENT: Present: no symptoms reported Respiratory: Present: no symptoms reported Cardiology: Present: no symptoms reported Gastrointestinal/Abdominal: Present: no symptoms reported Genitourinary: Present: no symptoms reported Musculoskeletal: Present: See HPI Skin: Present: no symptoms reported Neurological: Present: no symptoms reported Endocrine: Present: no symptoms reported Hematologic/Lymphatic: Present: no symptoms reported Psych: Present: no symptoms reported - Patient's Past Medical History Patient History - Medical: No pertinent hx, Chronic Pain, Diabetes Type 2, Headache, Migraines Patient History - Cardiac/Respiratory: No pertinent hx Patient History - Cancer: No Hx of Cancer Patient History - Surgical Procedures: Cataracts, Cholecystectomy, Tubal Ligation, Other Patient History - Other: None - Social History Living Situations: home Abuse History: No History of abuse Psych History: Hx of Anxiety, Hx of Depression, Current tx/ever been on anti- depressants or anti-anxiety meds Smoking Status: Current every day smoker Have you smoked in the past 12 months: Yes Do you dip or chew tobacco: No Alcohol Use: none Drug Use: none - Immunizations Immunizations Up to Date: Yes Hx Pneumococcal Vaccination: No History of Influenza Vaccine: No Physical Exam - Physical Exam General Appearance: Present: wd/wn, alert, moderate distress Head Exam: Present: normal inspection, no evidence of injury Eye Exam: Normal inspection: bilateral, PERRL: bilateral Ears, Nose, Throat: Present: normal ENT inspection, H, normal pharynx Neck: Present: normal inspection, nontender Respiratory: Present: no respiratory distress, normal breath sounds, no accessory muscle use, chest nontender, lungs clear Cardiovascular/Chest: Present: regular rate, rhythm, no murmur, normal peripheral pulses Gastrointestinal/Abdominal: Present: normal bowel sounds, nontender, nondistended, soft, no organomegaly Rectal Exam: Present: deferred Back Exam: Present: normal inspection, normal range of motion Extremity Exam: Present: normal range of motion, no edema, calf tenderness, other - equivocal Homans Neurological Exam: Present: alert, oriented, normal mood/affect Skin Exam: Present: normal color, warm/dry Lymphatic Exam: Present: no adenopathy ED Progress - Vital Signs Patient's Vital Signs:: I have reviewed the patient's vital signs. Vital Signs: Vital Signs 12/18/16 18:48 Temperature 36 C L Pulse Rate 76 Respiratory 20 Rate Blood Pressure 164/81 O2 Sat by Pulse 97 Oximetry - Progress/Reassessment Chief Complaint: Lower Extremity Pain/ Injury - Transfer of Care Physician Sign Out: Suman Ureña Receiving Physician: Radha Lux Departure Clinical Impression: Leg pain, posterior Qualifiers: Laterality: right Qualified Code(s): M79.604 - Pain in right leg - Departure Disposition: Against medical advice Condition: Good Referrals: Carlita Lujan, [employer] [Primary Care Provider] - <Jose JEdgardoRadha - Last Filed: 12/18/16 21:29> Lower Extremity HPI - Narrative Date of Service: 12/18/16 - Immun/Allergies/Home Medications Immunizations: IMMUNIZATION HX Immunizations Up to Date Yes History of Influenza Vaccine No Hx Pneumococcal Vaccination No ED Progress - Vital Signs Vital Signs: Vital Signs 12/18/16 12/18/16 18:48 21:04 Temperature 36 C L 36.7 C Pulse Rate 76 73 Respiratory 20 18 Rate Blood Pressure 164/81 129/70 O2 Sat by Pulse 97 97 Oximetry Plan - Plan Plan: The care of this patient was handed to me by the previous provider after the patient had artery been seen and evaluated examined and appropriate tests were ordered. While waiting for the ultrasound of the right lower extremity to come back patient decided to sign out AGAINST MEDICAL ADVICE. No further exam was done by this examiner patient walked out AGAINST MEDICAL ADVICE.
[2016-12-18 21:06] VITALS: BP 129/70
[2016-12-18] MEDS ORDERED: clonazePAM 1 MG TABLET PO SCH (21:15)
== END 2016-12-18 21:23 | disposition left against medical advice (07) ==
LOC: ER 18:36
DX: M79.661 Pain in right lower leg (principal); F17.200 Nicotine dependence, unspecified, uncomplicated; E11.9 Type 2 diabetes mellitus without complications; Z79.4 Long term (current) use of insulin